=== PATIENT | female | born 1960 | race Caucasian/White ===

== ENCOUNTER → 2018-05-15 | Outpatient (CLI) | payer BC ==
[~2018-05-15] MED LIST: GADOBUTROL 7.5 ML VIAL IVP ONE; IOPAMIDOL (ISOVUE 370) 100 ML BTL IV ONE; LIDOCAINE 1% 300 MG/30 ML SDV ONE
== END ==
LOC: FIMAGING 10:05
PROC: 3E0U3KZ Introduction of Other Diagnostic Substance into Joints, Percutaneous Approach (ICD-10-PCS; principal; 2018-05-15)
DX: S73.191A Other sprain of right hip, initial encounter (principal); M76.891 Other specified enthesopathies of right lower limb, excluding foot
CPT/HCPCS: A9585; Q9967